=== PATIENT | female | born 1980 | race Caucasian/White ===

== ENCOUNTER 2017-11-26 21:30 | Emergency (ER) | payer OTHER ==
[~2017-11-26] VITALS: Ht 167.6 cm; Wt 84.0 kg
[2017-11-26] MEDS ORDERED: SYN0.088T PO (21:39)
[2017-11-26] MEDS ORDERED: LORazepam 1 MG tablet PO ONE (22:40)
[2017-11-26] MEDS ORDERED: LORazepam 2 mg/ml vial IV ONE (22:55)
[2017-11-26] MEDS ORDERED: benztropine 1mg tablet PO STA (23:50)
[2017-11-27 00:02] LABS: BASOPHILS % (AUTO) 0.5 % (0-1); EOSINOPHILS # (AUTO) 0.2 X10'3 (0-0.9); EOSINOPHILS % (AUTO) 1.7 % (0-6); HEMATOCRIT 38.1 % (35.0-45.0); HEMOGLOBIN 12.8 g/dl (12.0-16.0); LYMPHOCYTES # (AUTO) 2.9 X10'3 (1.1-4.8); LYMPHOCYTES % (AUTO) 30.4 % (21-51); MEAN CORPUSCULAR HEMOGLOBIN 26.8 PG (27.0-31.0); MEAN CORPUSCULAR HGB CONC 33.5 % (33.0-36.5); MEAN CORPUSCULAR VOLUME 79.8 FL (78-98); MEAN PLATELET VOLUME 9.6 FL (7.4-10.4); MONOCYTES # (AUTO) 0.7 X10'3 (0-0.9); MONOCYTES % (AUTO) 6.8 % (2-12); NEUTROPHILS # (AUTO) 5.8 X10'3 (1.8-7.7); NEUTROPHILS % (AUTO) 60.6 % (42-75); PLATELET COUNT 297 X10'3 (140-440); RED BLOOD COUNT 4.78 X10'6 (4.20-5.60); WHITE BLOOD COUNT 9.6 X10'3 (4.5-11.0)
[2017-11-27 00:11] LABS: ALANINE AMINOTRANSFERASE 52 U/L (12-78); ALBUMIN 3.7 G/DL (3.4-5.0); ALBUMIN/GLOBULIN RATIO 0.9 (1.1-1.5); ALKALINE PHOSPHATASE 96 IU/L (46-116); ANION GAP 9 (8-16); ASPARTATE AMINO TRANSFERASE 29 U/L (10-37); BILIRUBIN,TOTAL 0.4 MG/DL (0.1-1.0); BLOOD UREA NITROGEN 10 MG/DL (7-18); BUN/CREATININE RATIO 10.6 (6.6-38.0); CALCIUM 8.8 MG/DL (8.5-10.1); CHLORIDE 105 MMOL/L (99-107); CREATININE 0.94 MG/DL (0.40-0.90); GLUCOSE 91 MG/DL (70-104); MAGNESIUM 1.9 MG/DL (1.5-2.4); POTASSIUM 3.6 MMOL/L (3.5-5.1); SODIUM 139 MMOL/L (135-145); TOTAL CARBON DIOXIDE 25.2 MMOL/L (24-32); TOTAL PROTEIN 7.6 G/DL (6.4-8.2); eGFR 67 ML/MIN
[2017-11-27] MEDS: benztropine 1 mg/ml 2ml ampule IV ONE ×2 (00:25→02:04)
[2017-11-27] MEDS ORDERED: normal saline 1000ML IV soln IVB ONE (00:45)
[2017-11-27 01:18] VITALS: BP 107/72
== END 2017-11-27 02:39 | disposition home or self-care (01) ==
LOC: ER 21:30
DX: G25.9 Extrapyramidal and movement disorder, unspecified (principal); E03.9 Hypothyroidism, unspecified; Z79.899 Other long term (current) drug therapy; Z60.2 Problems related to living alone
CPT/HCPCS: 36415; 80053; 82948; 83735; 85025; 96374; 99284; J0515

== ENCOUNTER 2022-12-03 23:50 | Emergency (ER) | payer MEDICAID ==
[~2022-12-03] VITALS: Ht 157.5 cm; Wt 62.2 kg
[~2022-12-03 23:50] MED LIST: SYN0.088T PO
[2022-12-04 00:45] LABS: HEMATOCRIT 42.9 % (35.0-45.0); HEMOGLOBIN 14.5 g/dl (12.0-16.0)
[2022-12-04 00:47] LABS: MEAN CORPUSCULAR HEMOGLOBIN 28.5 PG (27.0-31.0); MEAN CORPUSCULAR HGB CONC 33.7 g/dL (33.0-36.5); MEAN CORPUSCULAR VOLUME 84.4 FL (78-98); MEAN PLATELET VOLUME 8.3 FL (7.4-10.4); PLATELET COUNT 304 X10'3 (140-440); RED BLOOD COUNT 5.08 X10'6 (4.20-5.60); RED CELL DISTRIBUTION WIDTH 13.7 % (11.5-14.5); WHITE BLOOD COUNT 8.2 X10'3 (4.5-11.0)
[2022-12-04 00:48] LABS: CLARITY,URINE SLIGHTLY CLOUDY (Clear); COLOR,URINE YELLOW (Yellow); GLUCOSE, URINE NEGATIVE (Neg); KETONES,URINE >=80 mg/dl (Neg); LEUKOCYTE ESTERASE ,URINE NEGATIVE (Neg); NITRITES, URINE NEGATIVE (Neg); OCCULT BLOOD,URINE MODERATE (Neg); PROTEIN,URINE NEGATIVE (Neg); URINE HCG NEGATIVE (NEG); UROBILINOGEN,URINE 0.2 E.U/dL (0.2-1.0)
[2022-12-04 00:53] LABS: UA COLLECTION TYPE CLN CATCH MIDSTREAM
[2022-12-04 00:55] LABS: BACTERIA,URINE FEW /HPF (Neg); MUCUS STRANDS FEW /LPF (Neg); RBC,URINE 20-50 /HPF (0-2); SQUAMOUS EPITHELIAL CELL,UR FEW /LPF (FEW); WBC,URINE 0-4 /HPF (0-4)
[2022-12-04 00:59] LABS: ALANINE AMINOTRANSFERASE 22 U/L (12-78); ALBUMIN/GLOBULIN RATIO 1.1 (1.1-1.5); ALKALINE PHOSPHATASE 64 IU/L (46-116); ANION GAP 12 (8-16); ASPARTATE AMINO TRANSFERASE 12 U/L (10-37); BLOOD UREA NITROGEN 8 MG/DL (7-18); BUN/CREATININE RATIO 9.9 (10.0-20.0); CALCIUM 9.4 MG/DL (8.5-10.1); CHLORIDE 105 MMOL/L (99-107); CREATININE 0.81 MG/DL (0.40-0.90); GLUCOSE 84 MG/DL (70-104); POTASSIUM 3.2 MMOL/L (3.5-5.1); SODIUM 142 MMOL/L (135-145); TOTAL CARBON DIOXIDE 25.1 MMOL/L (24-32); TOTAL PROTEIN 7.6 G/DL (6.4-8.2); eGFR 78 ML/MIN
[2022-12-04 01:03] LABS: URINE AMPHETAMINE SCREEN NEGATIVE (Neg); URINE BARBITUATE SCREEN NEGATIVE (Neg); URINE BENZODIAZEPINES SCREEN NEGATIVE (Neg); URINE CANNABINOID SCREEN NEGATIVE (Neg); URINE COCAINE SCREEN NEGATIVE (Neg); URINE METHADONE SCREEN NEGATIVE (Neg); URINE OPIATE SCREEN NEGATIVE (Neg); URINE PHENCYCLIDINE SCREEN NEGATIVE (Neg)
[2022-12-04] MEDS ORDERED: POTASSIUM BICARB 20meq eff tab 20 MEQ TABLET.EFF PO ONE (01:15)
[2022-12-04 01:22] LABS: ETHANOL < 10 MG/DL (<10)
[2022-12-04 01:35] LABS: TOTAL CELLS COUNTED 100
[2022-12-04 01:36] LABS: PLATELET ESTIMATE NORMAL
[2022-12-04] MEDS ORDERED: Melatonin 3mg tablet PO ONE (02:15)
[2022-12-04] MEDS ORDERED: LORazepam 1 MG tablet PO ONE (02:15)
--- NOTE | 2022-12-04 02:54 | NUR ---
Patient is resting quietly in bed 26. Ativan 1 mg was given PO for anxiety. Patient was given Melatonin 6 mg PO for sleep. Warm blankets and water provided. Patient is cooperative with PO medicatins.
--- NOTE | 2022-12-04 04:23 | NUR ---
Patient sleeps quietly on her left side. No distress.
--- NOTE | 2022-12-04 04:24 | NUR ---
Packet sent to [facility].
--- NOTE | 2022-12-04 04:33 | NUR ---
Jo Jackson- Patients Aunt. .
[2022-12-04] MEDS ORDERED: levoTHYROXINE 88mcg tablet PO SCH (07:00)
--- NOTE | 2022-12-04 07:00 | NUR ---
Assumed care of patient at 0625. Pt continues to rest comfortably, rr even and unlabored.
--- NOTE | 2022-12-04 09:00 | NUR ---
Pt continues to sleep, account underwriter woke patient to take morning medication. Breakfast still at bedside, pt stated she would eat, declined to have meal heated up. Pt present sleepy, she received Ativan 1mg and Melatonin 6mg. Pt's responses were minimal, reports passsive SI "just thoughts." No prior SA or PHF placements. Pt waiting to be evaluated by [facility].
--- NOTE | 2022-12-04 10:50 | NUR ---
[facility] clinician at bedside.
--- NOTE | 2022-12-04 11:40 | NUR ---
Received verbal authorization to talk to pt's Aunt Cintia.
--- NOTE | 2022-12-04 11:41 | NUR ---
Pt on phone with Aunt, pt presents with depressed affect.
--- NOTE | 2022-12-04 13:03 | NUR ---
Pt's hold is being discharged home with Aunt Cintia.
--- NOTE | 2022-12-04 13:13 | NUR ---
Pt is tearful "I just need some medication." Pt is depressed, denies SI at this time. Pt is being safely discharged home with Aunt Cintia. Pt is seen at [facility], automatic typewriter inspector suggested she go to [id number] and request an immediate appointment with her PCP. Pt sees therapist Catrachito at [facility].
--- NOTE | 2022-12-04 14:19 | NUR ---
Pt napping, waiting for Aunt to picker tender helper.
--- NOTE | 2022-12-04 14:34 | NUR ---
DISCHARGE NOTE: Patient was discharged from unit to the care of her Aunt Cintia. Pt was quite when changing her clothes. Pt left with all personal belongings. Pt was encouraged to go directly to [facility] when leaving here. Pt was escorted to lobby where aunt was waiting. Pt was A&Ox4.
[2022-12-04 14:52] VITALS: BP 90/55; PULSE 60; RESP 14; TEMP 98; O2SAT 99
== END 2022-12-04 14:34 | disposition home or self-care (01) ==
LOC: ER 23:51
DX: R45.851 Suicidal ideations (principal); Z20.822 Contact with and (suspected) exposure to COVID-19; F32.A Depression, unspecified; E03.9 Hypothyroidism, unspecified; Z79.899 Other long term (current) drug therapy
CPT/HCPCS: 36415; 80053; 80305; 80320; 81001; 81025; 84443; 85007; 85025; 87811; 99285